=== PATIENT | male | born 1975 | race Caucasian/White ===

== ENCOUNTER 2017-01-09 10:03 | Emergency (ER) | payer OTHER ==
[~2017-01-09] VITALS: Ht 188 cm; Wt 127.0 kg
[2017-01-09] MEDS ORDERED: FLUO20CA30 PO (10:13)
[2017-01-09 11:19] VITALS: BP 144/93
== END 2017-01-09 11:55 | disposition home or self-care (01) ==
LOC: EMS 10:07
DX: Z48.02 Encounter for removal of sutures (principal); F17.210 Nicotine dependence, cigarettes, uncomplicated; F15.90 Other stimulant use, unspecified, uncomplicated
CPT/HCPCS: 99281